=== PATIENT | female | born 2000 | race Hispanic/Latino ===

== ENCOUNTER 2020-04-01 16:51 | Emergency (ER) | payer MEDICAID ==
[~2020-04-01] VITALS: Ht 157.5 cm; Wt 79.4 kg
--- NOTE | 2020-04-01 17:42 | Emergency Department Note ---
History of Present Illnes History of Present Illness Chief Complaint: Chest Pain History of Present Illness This is a 19 year old female Chief Complaint Comment pt came in via POV for c/o chest pain, pt states that she has gastric acid reflux but does not take any prescription medications for it, pt states that she feels anxious whenever she feels the acid come back up, denies any cardiac hx. 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 Any updates have been documented here. Past Medical History Recent Fever: No Clinical Suspicion of Infectio: No New/Unexplained Change in Ment: No Past Medical History: None Past Surgical History: None Other Last Tetanus: UNK Review of Systems Review of Systems Constitutional: Reports no symptoms EENTM: Reports no symptoms Cardiovascular: Reports as per HPI, Reports chest pain Respiratory: Reports no symptoms Gastrointestinal: Reports no symptoms Genitourinary: Reports no symptoms Musculoskeletal: Reports no symptoms Integumentary: Reports no symptoms Neurological: Reports no symptoms Psychological: Reports no symptoms Endocrine: Reports no symptoms Hematological/Lymphatic: Reports no symptoms Physical Exam Related Data Allergies: Coded Allergies: No Known Allergies (Unverified , 02/17/17) Triage Vital Signs Vital Signs Date Time Temp Pulse Resp B/P (MAP) Pulse Ox O2 Delivery O2 Flow Rate FiO2 04/01/20 17:13 98.1 96 18 149/107 99 Vital signs reviewed: Yes Physical Exam CONSTITUTIONAL Constitutional: Present well-developed, Present well-nourished HENT HENT: Present normocephalic, Present atraumatic, Present oropharynx clear/moist, Present nose normal HENT L/R: Present left ext ear normal, Present right ext ear normal EYES Eyes: Reports PERRL, Reports conjunctivae normal NECK Neck: Present ROM normal PULMONARY Pulmonary: Present effort normal, Present breath sounds normal CARDIOVASCULAR Cardiovascular: Present regular rhythm, Present heart sounds normal, Present capillary refill normal, Present normal rate GASTROINTESTINAL Abdominal: Present soft, Present nontender, Present bowel sounds normal GENITOURINARY Genitourinary: Present exam deferred SKIN Skin: Present warm, Present dry MUSCULOSKELETAL Musculoskeletal: Present ROM normal NEUROLOGICAL Neurological: Present alert, Present oriented x 3, Present no gross motor or sensory deficits PSYCHOLOGICAL Psychological: Present mood/affect normal, Present judgement normal Assessment & Plan Medical Decision Making MDM 19-year-old female no past medical history presents to emergency department for intermittent sternal/left-sided chest pain. She has no symptoms at this time. She thinks it may be reflux. She does take Tums at home. Denies aggravating or relieving factors otherwise feels at her baseline health. No family history of heart disease. Chest x-ray, EKG, urine are all unremarkable. Discussed results the patient and will discharge home instructions follow up with her primary care provider or return to emergency department for worsening symptoms. Patient is appropriate discharge. Assessment & Plan Final Impression: (1) Chest pain Depart Disposition: HOME, SELF-CARE Last Vital Signs Date Time Temp Pulse Resp B/P (MAP) Pulse Ox O2 Delivery O2 Flow Rate FiO2 04/01/20 17:13 98.1 96 18 149/107 99 Home Meds No Active Prescriptions or Reported Meds JUNIE DO MD Apr 01, 2020 17:42
--- OUTSIDE RECORDS SUMMARY | 2020-04-01 18:02 | XMS REPORT | Continuity of Care Document ---
Author Author Allegra Migue [employer] MILTON Garner [employer] Address Unknown Phone Unavailable Care Team Providers Care Pressfitter Name Role Phone [employer] Unavailable Un available Problems Problem Status Onset Date Classification Date Reported Comments Source Chest pain, unspecified 11/18/2019 11/20/2019 [facility] CHEST PAIN Active 11/17/2019 [facility] Otitis media, unspecified, left ear 10/29/2018 10/31/2018 [facility] Unspecified acute noninfective otitis externa, left ea r 10/29/2018 10/31/2018 [facility] EAR PAIN Active 10/29/2018 [facility] Nausea with vomiting, unspecified 08/25/2017 11/23/2017 [facility] Vomiting, unspecified 08/17/2017 11/23/2017 [facility] Unspecified abdominal pain 08/17/2017 11/23/2017 [facility] Urinary tract infection, site not specified 08/17/2017 11/23/2017 [facility] VOMITING Active 08/16/2017 [facility] Discharge Diagnosis: Headache 07/03/2015 07/06/2015 [facility] HEADACHE Active 07/03/2015 [facility] Discharge Diagnosis: Epigastric pain 06/30/2015 07/03/2015 [facility] ABD PAIN Active 06/30/2015 [facility] COUGH, HEADACHE, SORE THROAT A ctive 03/10/[address] [facility] COUGH Active 01/19/[address] [facility] Epigastric pain 11/23/2017 [facility] Diarrhea, unspecified 11/23/2017 [facility] Anxiety (finding) Resolved Problem 11/20/2019 [facility] Medications Medication Details Route Status Patient Instructions Ordering Provider Order Date Source Saline Flush 0.9% Notes: (Same as: BD Posiflush) No Longer Active 11/18/2019 [facility] ibuprofen 600 mg oral tablet 6 00 mg = 1 tab, PO, Q6H, PRN Pain, take with food, X 7 day, # 24 tab, 0 Refill(s) Active 10/29/2018 [facility] tramadol hydrochloride 50 MG Oral Tablet 50 mg = 1 tab, PO, Q6H, PRN Pain, X 5 day, # 24 tab, 0 Refill(s) Active 10/29/2018 [facility] amoxicillin 875 mg oral tablet 875 mg = 1 tab, PO, Q12H, X 10 day, # 20 tab, 0 Refill(s) Active 10/29/2018 [facility] Hydrocortisone 10 MG/ML / Neomycin 3.5 M G/ML / Polymyxin B 85506 UNT/ML Otic Solution 2 drp, Each Affected Ear, QID, X 10 day, # 10 ml, 0 Refill(s) Active 10/29/2018 [facility] Zofran ODT 4 mg, Route: PO, Dr ug form: TABDIS, ONCE, Dosing Weight 68.182, kg, Priority: STAT, Start date: 10/29/18 4:19:00 CDT, Stop date: 10/29/18 4:19:00 CDT Inactive 10/29/2018 [facility] Acetaminophen 325 MG / Hydrocodone Chetna trate 5 MG Oral Tablet [Haynes 5/325] 1 tab, Route: PO, Drug Form: TAB, Dosing Weight 68.182, kg, ONCE, STAT, Start date: 10/29/18 4:19:00 CDT, Stop date: 10/29/18 4:19:00 CDT Inactive 10/29/2018 [facility] Nitrofurantoin 100 MG Oral Capsule [Macrobid] 100 mg = 1 cap, PO, BID, X 5 day, # 10 cap, 0 Refill(s) No Longer Active 08/17/2017 [facility] Ranitidine 150 MG Oral Tablet [Zantac] 150 mg = 1 tab, PO, BID, # 60 tab, 0 Refill(s) Active 08/17/2017 [facility] Phenergan 25 mg oral tablet 25 mg = 1 tab, PO, Q6H, PRN Nausea, # 15 tab, 0 Refill(s) Active 08/17/2017 [facility] Dicyclomine Hydrochloride 20 MG Oral Tablet [Bentyl] 20 mg = 1 tab, PO, QID-Before Meals, # 20 tab, 0 Refill(s) Active 08/17/2017 [facility] Famotidine 20 mg, Route: PO, O NCE, Dosing Weight 68.182, kg, Priority: STAT, Start date: 08/17/17 5:05:00 CDT, Stop date: 08/17/17 5:05:00 CDT Inactive 08/17/2017 [facility] Promethazine 12.5 mg, Route: I VPB, ONCE, Dosing Weight 68.182, kg, Priority: STAT, Start date: 08/17/17 5:05:00 CDT, Stop date: 08/17/17 5:05:00 CDT Inactive 08/17/2017 [facility] Rocephin 1 gm, Route: IVPB, Dr ug form: PDR/INJ, ONCE, Dosing Weight 68.182, kg, Priority: STAT, Start date: 08/17/17 4:47:00 CDT, Stop date: 08/17/17 4:47:00 CDT, ABX Indication: Urinary Tract Infection Inactive 08/17/2017 [facility] Ondansetron 4 mg, Route: IVP, ONCE, Dosing Weight 68.182, kg, Priority: STAT, Start date: 08/17/17 3:36:00 CDT, Stop date: 08/17/17 3:36:00 CDT Inactive 08/17/2017 [facility] Saline Flush 0.9% Notes: (Same as: BD Posiflush) Inactive 08/17/2017 [facility] Sodium Chloride 0.9% (Bolus) IV 1,000 mL, Infuse Over: 1 hr, Route: IV, ONCE, Priority: STAT, Dosing Weight 68.182 kg, Start date: 08/17/17 3:36:00 CDT, Stop date: 08/17/17 3:36:00 CDT Inactive 08/17/2017 [facility] ibuprofen 800 mg oral tablet 8 00 mg = 1 tab, PO, Q8H, PRN Fever or Pain, Take with food, # 30 tab, 0 Refill(s) Active 07/03/2015 [facility] Ondansetron 4 MG Disintegrating Tablet [Zofran] 4 mg = 1 tab, PO, Q8H, PRN as needed for nausea/vomiting, X 4 day, # 12 tab, 0 Refill(s) Active 07/03/2015 [facility] acetaminophen-codeine #3 1 tab , Route: PO, Dosing Weight 59.091, kg, ONCE, STAT, Start date: 07/03/15 4:12:00, Stop date: 07/03/15 4:12:00 Inactive 07/03/2015 [facility] Dicyclomine Hydrochloride 10 MG Oral Capsule [Bentyl] 10 mg = 1 cap, PO, QID-Before Meals, # 28 cap, 0 Refill(s) Active 06/30/2015 [facility] Ondansetron 4 MG Disintegrating Tablet [Zofran] 4 mg = 1 tab, PO, Q8H, PRN Nausea and Vomiting, Dissolve tab under tongue, X 5 day, # 15 tab, 0 Refill(s) Active 06/30/2015 [facility] Levsin Notes: (Same as: Levsin ) MEDICATION WASTE Product Size: 0.5 mg Product Wasted: ___ mg Inactive 06/30/2015 [facility] Zofran Notes: (Same as: Zofran ) MEDICATION WASTE Product Size: 4 mg Product Wasted: ___ mg Inactive 06/30/2015 [facility] Sodium Chloride 0.154 MEQ/ML Injectable Solution 1,000 mL, 1000 ml/hr, Infuse Over: 1 hr, Route: IV, 1,000, Drug form: INJ, ONCE, Priority: STAT, Dosing Weight 68.182 kg, Start date: 06/30/15 3:02:00, Duration: 1 doses or times, Stop date: 06/30/15 3:02:00 Inactive 06/30/2015 [facility] acetaminophen 500 mg, 1 tab, R oute: PO, Drug form: TAB, ONCE, Dosing Weight 52.727, kg, Pediatric Dosing, Priority: STAT, Start date: 03/10/13 21:44:00, Stop date: 03/10/13 21:44:00Max acetaminophen 4000 mg/day (4 gm/day). (Same as: Tylenol Extra Strength) Inactive Gu erra 03/11/[address] [facility] Ventolin HFA 90 mcg/inh inhalation aerosol with adapte r 2 puff, INHALATION, QID, PRN, 17 gm, as needed for cough or wheezing, Substitution Allowed, Maintenance, AERO INHALATION Active Dav 01/20/[address] [facility] Zithromax Z-Ishmael 250 mg oral tablet 1, PO, Daily, Take as directed, 1 pkt, Substitution AllowedTake as directed PO Active Dav 01/20/[address] [facility] Allergies, Adverse Reactions, Alerts Substance Category Reaction Severity Reaction type Status Date Reported Comments Source No Known Medication Allergies Assertion Drug aller gy [facility] Immunizations No Data Provided for This Section Results Order Name Results Value Reference Range Date Interpretation Comments Source CARDIAC ENZYMES Total CK 554 12 - 191 11/18/2019 [facility] CARDIAC ENZYMES Troponin-I <0.02 0.00 - 0.40 11/18/2019 [facility] CHEM PANEL Glucose Lvl 103 70 - 99 11/18/2019 [facility] CHEM PANEL BUN 14 7 - 22 11/18/2019 [facility] CHEM PANEL Creatinine Lvl 0.64 0.50 - 1.40 11/18/2019 [facility] CHEM PANEL Sodium Lvl 139 135 - 145 11/18/2019 [facility] CHEM PANEL Potassium Lvl 3.6 3.5 - 5.1 11/18/2019 [facility] CHEM PANEL Chloride Lvl 107 95 - 109 11/18/2019 [facility] CHEM PANEL CO2 28 24 - 32 11/18/2019 [facility] CHEM [facility] Calcium Lvl 9.1 8.5 - 10.5 11/18/2019 [facility] CHEM PANEL Total Protein 8.2 6.4 - 8.4 11/18/2019 [facility] CHEM PANEL Albumin Lvl 3.9 3.5 - 5.0 11/18/2019 [facility] CHEM PANEL ALT 47 0 - 65 11/18/2019 [facility] CHEM PANEL AST 30 0 - 37 11/18/2019 [facility] CHEM PANEL Alk Phos 95 39 - 136 11/18/2019 [facility] CHEM PANEL Bili Total 0.3 0.2 - 1.3 11/18/2019 [facility] CHEM PANEL AGAP 7.6 10.0 - 20.0 11/18/2019 [facility] CHEM PANEL B/C Ratio 22 6 - 25 11/18/2019 [facility] CHEM PANEL Globulin 4.3 2.7 - 4.2 11/18/2019 [facility] CHEM PANEL A/G Ratio 0.9 0.7 - 1.6 11/18/2019 [facility] CHEM PANEL eGFR 129 11/18/2019 Result Comment: The eGFR is calculated using the CKD-EPI formula. In most young, healthy individuals the eGFR will be >90 mL/min/1.73m2. The eGFR declines with age. An eGFR of 60-89 may be normal in some populations, particularly the elderly, for whom the CKD-EPI formula has not been extensively validated. Use of the eGFR is not recommended in the following populations:

Individuals with unstable creatinine concentrations, including patients and those with serious co-morbid conditions.

Patients with extremes in muscle mass or diet.

The data above are obtained from the National Kidney Disease Education Program (NKDEP) which additionally recommends that when the eGFR is used in patients with extremes of body mass index for purposes of drug dosing, the eGFR should be multiplied by the estimated BMI. [facility] ENDOCRINOLOGY S Preg Ne gative *NA* (11/18/19 12:38 AM) Negative 11/18/2019 [facility] WBC 9.2 3.7 - 10.4 11/18/2019 [facility] RBC 4.60 4.20 - 5.40 11/18/2019 [facility] Hgb 13.2 12.0 - 16.0 11/18/2019 [facility] Hct 38.3 36.0 - 48.0 11/18/2019 [facility] MCV 83.4 80.0 - 98.0 11/18/2019 [facility] MCH 28.7 27.0 - 31.0 11/18/2019 [facility] MCHC 34.3 32.0 - 36.0 11/18/2019 [facility] RDW 13.6 11.5 - 14.5 11/18/2019 [facility] Platelet 301 133 - 450 11/18/2019 [facility] MPV 9.0 7.4 - 10.4 11/18/2019 [facility] Segs 70.8 45.0 - 75.0 11/18/2019 [facility] Lymphocytes 19.5 20.0 - 40.0 11/18/2019 [facility] Monocytes 9.0 2.0 - 12.0 11/18/2019 [facility] Eosinophils 0.4 0.0 - 4.0 11/18/2019 [facility] Basophils 0.3 0.0 - 1.0 11/18/2019 [facility] Neutrophils # 6.5 1.5 - 8.1 11/18/2019 [facility] Lymphocytes # 1.8 1.0 - 5.5 11/18/2019 [facility] Monocytes # 0.8 0.0 - 0.8 11/18/2019 [facility] URINE AND STOOL UA Urobilinogen <=1.0 mg/dL 0.1 - 1.0 08/17/2017 [facility] URINE AND STOOL UA Leuk Est Small *ABN* (08/17/17 3:55 AM) Negative 08/17/2017 [facility] URINE AND STOOL UA Mucus Few /LPF None Seen /LPF 08/17/2017 [facility] URINE AND STOOL UA Bacteria Occasional /HPF None Seen /HPF 08/17/[address] [facility] [address] URINE AND STOOL UA [place] Yeast Occasional /HPF None Seen /HPF 08/17/[address] [facility] [address] URINE AND STOOL UA Nitrite Negative (08/17/17 3:55 AM) Negative 08/17/2017 [facility] URINE AND STOOL UA RBC 3 0 - 2 08/17/2017 [facility] URINE AND STOOL UA WBC 26 0 - 5 08/17/2017 [facility] URINE AND STOOL UA Sq Epi Many /LPF Few /LPF 08/17/2017 [facility] URINE AND STOOL UA pH 7.0 5.0 - 8.0 08/17/2017 [facility] URINE AND STOOL UA Turbidity Slight *ABN* (08/17/17 3:55 AM) Clear 08/17/2017 [facility] URINE AND STOOL UA Color Yellow *NA* (08/17/17 3:55 AM) Yellow 08/17/2017 [facility] URINE AND STOOL UA Spec Grav 1.032 <=1.030 08/17/2017 [facility] URINE AND STOOL UA Glucose Negative mg/dL Negative mg/dL 08/17/2017 [facility] URINE AND STOOL UA Ketones Negative mg/dL Negative mg/dL 08/17/2017 [facility] URINE AND STOOL UA Blood Negative (08/17/17 3:55 AM) Negative 08/17/2017 [facility] URINE AND STOOL UA Bili Negative *NA* (08/17/17 3:55 AM) Negative 08/17/2017 [facility] URINE AND STOOL UA Protein 30 mg/dL Negative mg/dL 08/17/2017 [facility] URINE CHEM U Preg Negat shanae (08/17/17 3:55 AM) Negative 08/17/2017 [facility] Culture: Urine >100,000 CFU/mL Skin Devi <10,000 CFU/mL Gram Negative Rods, Lactose Fermenters 08/17/2017 [facility] CHEM PANEL Lipase Lvl 71 06 - 393 08/17/2017 [facility] ELECTROLYTES AGAP 11.9 10.0 - 20.0 08/17/2017 [facility] ELECTROLYTES A/G Ratio 0.9 0.7 - 1.6 08/17/2017 [facility] ELECTROLYTES B/C Ratio 31 6 - 25 08/17/2017 [facility] ELECTROLYTES Globulin 4.1 2.7 - 4.2 08/17/2017 [facility] ELECTROLYTES eGFR 124 08/17/2017 Result Comment: The eGFR is calculated using the modified Vigil equation 0.413 x Height (cm) /Serum Creatinine (mg/dL). [facility] ELECTROLYTES AST 18 0 - 37 08/17/2017 [facility] ELECTROLYTES Alk Phos 72 39 - 136 08/17/2017 [facility] ELECTROLYTES ALT 22 0 - 65 08/17/2017 [facility] ELECTROLYTES Bili Total 0.4 0.2 - 1.3 08/17/2017 [facility] ELECTROLYTES Albumin Lvl 3.8 3.5 - 5.0 08/17/2017 [facility] ELECTROLYTES CO2 24 24 - 32 08/17/2017 [facility] ELECTROLYTES Calcium Lvl 8.7 8.5 - 10.5 08/17/2017 [facility] ELECTROLYTES Chloride Lvl 108 95 - 109 08/17/2017 [facility] ELECTROLYTES Total Protein 7.9 6.4 - 8.4 08/17/2017 [facility] ELECTROLYTES Potassium Lvl 3.9 3.5 - 5.1 08/17/2017 [facility] ELECTROLYTES BUN 16 7 - 22 08/17/2017 [facility] ELECTROLYTES Creatinine Lvl 0.5 2 0.50 - 1.40 08/17/2017 [facility] ELECTROLYTES Glucose Lvl 92 70 - 99 08/17/2017 [facility] ELECTROLYTES Sodium Lvl 140 135 - 145 08/17/2017 [facility] HEMATOLOGY RBC Morph Neli l (08/17/17 3:46 AM) 08/17/2017 [facility] Plt Morph Neli l (08/17/17 3:46 AM) 08/17/2017 [facility] HEMATOLOGY Segs 91.4 45.0 - 75.0 08/17/2017 [facility] HEMATOLOGY Lymphocytes # 0.4 1.0 - 5.5 08/17/2017 [facility] HEMATOLOGY Monocytes # 0.5 0.0 - 0.8 08/17/2017 [facility] HEMATOLOGY Segs-Bands # 10.4 1.5 - 8.1 08/17/2017 [facility] HEMATOLOGY Toxic Gran Slight 08/17/2017 [facility] Lymphocytes 3.8 20.0 - 40.0 08/17/2017 [facility] HEMATOLOGY Eosinophils 0.2 0.0 - 4.0 08/17/2017 [facility] HEMATOLOGY Basophils 0.2 0.0 - 1.0 08/17/2017 [facility] HEMATOLOGY Monocytes 4.4 2.0 - 12.0 08/17/2017 [facility] HEMATOLOGY Platelet 265 133 - 450 08/17/2017 [facility] HEMATOLOGY MCHC 32.8 32.0 - 36.0 08/17/2017 [facility] MCH 26.2 27.0 - 31.0 08/17/2017 [facility] MPV 9.0 7.4 - 10.4 08/17/2017 [facility] HEMATOLOGY RDW 14.1 11.5 - 14.5 08/17/2017 [facility] HEMATOLOGY Hgb 11.9 12.0 - 16.0 08/17/2017 [facility] HEMATOLOGY MCV 79.8 80.0 - 98.0 08/17/2017 [facility] HEMATOLOGY Hct 36.2 36.0 - 48.0 08/17/2017 [facility] HEMATOLOGY WBC 11.3 3.7 - 10.4 08/17/2017 [facility] RBC 4.53 4.20 - 5.40 08/17/2017 [facility] URINE CHEM U Preg Negat shanae (07/03/15 5:19 AM) Negative 07/03/2015 [facility] URINE AND STOOL UA Turbidity Clear (06/30/15 1:29 AM) Clear 06/30/2015 [facility] URINE AND STOOL UA Spec Grav 1.031 <=1.030 06/30/2015 [facility] URINE AND STOOL UA WBC 2 0 - 5 06/30/2015 [facility] URINE AND STOOL UA Leuk Est Trace *ABN* (06/30/15 1:29 AM) Negative 06/30/2015 [facility] URINE AND STOOL UA Nitrite Negative (06/30/15 1:29 AM) Negative 06/30/2015 [facility] URINE AND STOOL UA Sq Epi Occasional /LPF Few /LPF 06/30/2015 [facility] URINE AND STOOL UA Blood Negative (06/30/15 1:29 AM) Negative 06/30/2015 [facility] URINE AND STOOL UA RBC 4 0 - 2 06/30/2015 [facility] URINE AND STOOL UA Color Ltyellow 06/30/2015 [facility] URINE AND STOOL UA Mucus Few /LPF None Seen /LPF 06/30/2015 [facility] URINE AND STOOL UA Bacteria Occasional /HPF None Seen /HPF 06/30/2015 [facility] URINE AND STOOL UA Urobilinogen <=1.0 mg/dL 0.1 - 1.0 06/30/2015 [facility] URINE AND STOOL UA Bili Negative *NA* (06/30/15 1:29 AM) Negative 06/30/2015 [facility] URINE AND STOOL UA Protein Negative mg/dL Negative mg/dL 06/30/2015 [facility] URINE AND STOOL UA pH 5.0 5.0 - 8.0 06/30/2015 [facility] URINE AND STOOL UA Ketones Trace mg/dL Negative mg/dL 06/30/2015 [facility] URINE AND STOOL UA Glucose Negative mg/dL Negative mg/dL 06/30/2015 [facility] URINE CHEM U Preg Negat shanae (06/30/15 1:29 AM) Negative 06/30/2015 [facility] CHEM PANEL Lipase Lvl 103 73 - 393 06/30/2015 [facility] CHEM PANEL Amylase Lvl 89 25 - 115 06/30/2015 [facility] CHEM PANEL Glucose Lvl 92 70 - 99 06/30/2015 [facility] CHEM PANEL ALT 33 0 - 65 06/30/2015 [facility] CHEM PANEL Total Protein 7.9 6.4 - 8.4 06/30/2015 [facility] CHEM PANEL CO2 22 24 - 32 06/30/2015 [facility] CHEM PANEL Albumin Lvl 4.0 3.5 - 5.0 06/30/2015 [facility] CHEM PANEL Calcium Lvl 8.8 8.5 - 10.5 06/30/2015 [facility] CHEM PANEL Potassium Lvl 3.8 3.5 - 5.1 06/30/2015 [facility] CHEM PANEL Creatinine Lvl 0.48 0.50 - 1.40 06/30/2015 [facility] CHEM PANEL Chloride Lvl 107 95 - 109 06/30/2015 [facility] CHEM PANEL Sodium Lvl 139 135 - 145 06/30/2015 [facility] CHEM PANEL BUN 15 7 - 22 06/30/2015 [facility] CHEM PANEL eGFR 136 06/30/2015 Result Comment: The eGFR is calculated using the modified Vigil equation 0.413 x Height (cm) /Serum Creatinine (mg/dL). [facility] CHEM PANEL Alk Phos 106 80 - 406 06/30/2015 [facility] CHEM PANEL Bili Total 0.3 0.2 - 1.3 06/30/2015 [facility] CHEM PANEL AST 14 0 - 37 06/30/2015 [facility] CHEM PANEL Globulin 3.9 2.0 - 4.0 06/30/2015 [facility] CHEM PANEL A/G Ratio 1.0 0.7 - 1.6 06/30/2015 [facility] CHEM PANEL B/C Ratio 31 6 - 25 06/30/2015 [facility] CHEM PANEL AGAP 13.8 10.0 - 20.0 06/30/2015 [facility] Eosinophils # 0.2 0.0 - 0.5 06/30/2015 [facility] HEMATOLOGY Monocytes # 0.8 0.0 - 0.8 06/30/2015 [facility] Lymphocytes # 1.4 1.0 - 5.5 06/30/2015 [facility] HEMATOLOGY Segs-Bands # 7.5 1.5 - 8.1 06/30/2015 [facility] Eosinophils 1.9 0.0 - 4.0 06/30/2015 [facility] Segs 75.4 34.0 - 64.0 06/30/2015 [facility] Lymphocytes 13.9 20.0 - 40.0 06/30/2015 [facility] Basophils 0.3 0.0 - 1.0 06/30/2015 [facility] Monocytes 8.5 2.0 - 12.0 06/30/2015 [facility] MPV 9.0 7.4 - 10.4 06/30/2015 [facility] Platelet 266 133 - 450 06/30/2015 [facility] MCHC 33.6 32.0 - 36.0 06/30/2015 [facility] MCV 82.8 80.0 - 98.0 06/30/2015 [facility] RDW 13.6 11.5 - 14.5 06/30/2015 [facility] MCH 27.8 27.0 - 31.0 06/30/2015 [facility] RBC 4.97 4.20 - 5.40 06/30/2015 [facility] WBC 9.9 3.7 - 10.4 06/30/2015 [facility] Hct 41.1 36.0 - 48.0 06/30/2015 [facility] Hgb 13.8 12.0 - 16.0 06/30/2015 [facility] VIRAL - SEROLOGY Influ A Negative (03/10/2013 21:30:00) Negati ve 03/11/[address] [facility] VIRAL - SEROLOGY Influ B Negative 1 (03/10/2013 21:30:00) Negati ve 03/11/2013 Normal <sup>1</sup>Interpretive Data: Influenza A&B Antigen:
Due to the low sensitivity of this test a negative result does not exclude influenza virus infection. A diagnosis of influenza should be considered based on a patient's clinical presentation and empiric antiviral treatment should be considered, if indicated. If more conclusive testing is desired, follow-up confirmatory testing with either viral culture or PCR is warranted. [facility] Pathology Reports No Data Provided for This Section Diagnostic Reports Report Value Date Source Chest 1view DX PROCEDURE INFOR MATION: Exam: XR Chest, 1 View Exam date and time: 11/18/2019 12:07 AM Age: 19 years old Clinical indication: Chest pain; Additional info: /chest pain TECHNIQUE: Imaging protocol: XR of the chest Views: 1 view. Other technique: Single AP view of the thorax is submitted for review. COMPARISON: CHEST 1VIEW DX 03/10/2013 10:09 PM FINDINGS: Lungs: The thorax shows normal lung volumes without consolidation or interstitial opacities. Pleural space: No effusions or pneumothorax. Heart/Mediastinum: The heart size is normal. The pulmonary vasculature is normal. The mediastinal contour is normal. The trachea is midline. Bones/joints: No acute abnormality seen. IMPRESSION: No acute cardiopulmonary findings. Zheng Souza MD On 11/18/2019 00:33:38; [id number] 11/17/2019 [facility] Abdomen RUQ US EXAM: RIGHT UPPER QUADRANT ULTRASOUND HISTORY: Right-sided abdominal pain. COMPARISON: None. TECHNIQUE: Sonographic evaluation of the right upper quadrant was performed with supplemental color and pulsed Doppler. FINDINGS: LIVER: Unremarkable. GALLBLADDER: No gallstones or wall thickening. BILE DUCTS: The visualized common duct measures 2 mm diameter. PANCREAS: Not visualized due to overlying bowel gas. RIGHT KIDNEY: No hydronephrosis. IMPRESSION: Pancreas not visualized. Otherwise, unremarkable ultrasound right upper quadrant. SL: 17 06/30/2015 [facility] 1view PROCEDURE: Chest 1view REASON FOR EXAM: See Clinic Indication CLINICAL INDICATION: Cough and fever COMPARISON: 01/20/2013. FINDINGS: No acute process. No focal consolidation, pleural effusion, or pneumothorax. Stable cardiothymic silhouette. SL: 12 03/10/[address] [facility] Chest 2 views CHEST RADIOGRAPH 2 VIEWS INDICATION: Chest pain COMPARISON: None FINDINGS: There is no consolidation, pleural effusion, or pneumothorax. No suspicious pulmonary nodules are identified. The cardiomediastinal silhouette and pulmonary vasculature are within normal limits. No acute bony abnormalities are seen. IMPRESSION: No acute intrathoracic disease is visualized. SL: 15 01/20/[address] [facility] Consultation Notes No Data Provided for This Section Discharge Summaries No Data Provided for This Section History and Physicals No Data Provided for This Section Vital Signs Vital Sign Value Date Comments Source Temperature Oral (F) 98.3 F 11/18/2019 [facility] Heart Rate 71 11/18/2019 [facility] Respitory Rate 17 11/18/2019 [facility] Systolic (mm Hg) 144 11/18/2019 [facility] Diastolic (mm Hg) 96 11/18/2019 [facility] Height 154.94 cm 11/18/2019 [facility] BMI Calculated 33.13 11/18/2019 [facility] Weight 79.545 11/18/2019 [facility] Systolic (mm Hg) 146 11/18/2019 [facility] Diastolic (mm Hg) 96 11/18/2019 [facility] Heart Rate 88 11/18/2019 [facility] Respitory Rate 20 11/18/2019 [facility] Temperature Oral (F) 99.0 F 11/18/2019 [facility] Heart Rate 77 10/29/2018 [facility] Temperature Oral (F) 98.3 F 10/29/2018 [facility] Respitory Rate 18 10/29/2018 [facility] Systolic (mm Hg) 129 10/29/2018 [facility] Diastolic (mm Hg) 88 10/29/2018 [facility] Weight 68.182 10/29/2018 [facility] Height 154.94 cm 10/29/2018 [facility] Respitory Rate 20 10/29/2018 [facility] Heart Rate 89 10/29/2018 [facility] BMI Calculated 28.4 10/29/2018 [facility] Temperature Oral (F) 98 F 10/29/2018 [facility] Systolic (mm Hg) 134 10/29/2018 [facility] Diastolic (mm Hg) 81 10/29/2018 [facility] Systolic (mm Hg) 115 08/17/2017 [facility] Diastolic (mm Hg) 71 08/17/2017 [facility] Respitory Rate 20 08/17/2017 [facility] Heart Rate 97 08/17/2017 [facility] Temperature Oral (F) 98.8 F 08/17/2017 [facility] Respitory Rate 20 08/17/2017 [facility] Heart Rate 98 08/17/2017 [facility] Weight 68.182 08/17/2017 [facility] BMI Calculated 28.4 08/17/2017 [facility] Height 154.94 cm 08/17/2017 [facility] Systolic (mm Hg) 114 08/17/2017 [facility] Diastolic (mm Hg) 72 08/17/2017 [facility] Systolic (mm Hg) 118 07/03/2015 [facility] Diastolic (mm Hg) 71 07/03/2015 [facility] Respitory Rate 18 07/03/2015 [facility] Temperature Oral (F) 98.3 F 07/03/2015 [facility] Heart Rate 75 07/03/2015 [facility] Systolic (mm Hg) 129 07/03/2015 [facility] Diastolic (mm Hg) 82 07/03/2015 [facility] Heart Rate 87 07/03/2015 [facility] Respitory Rate 18 07/03/2015 [facility] Temperature Oral (F) 98.5 F 07/03/2015 [facility] Height 157.48 cm 07/03/2015 [facility] BMI Calculated 23.83 07/03/2015 [facility] Weight 59.091 07/03/2015 [facility] Systolic (mm Hg) 119 07/03/2015 [facility] Diastolic (mm Hg) 69 07/03/2015 [facility] Temperature Oral (F) 99.2 F 07/03/2015 [facility] Heart Rate 87 07/03/2015 [facility] Respitory Rate 18 07/03/2015 [facility] Temperature Oral (F) 98.0 F 06/30/2015 [facility] Systolic (mm Hg) 114 06/30/2015 [facility] Diastolic (mm Hg) 76 06/30/2015 [facility] Respitory Rate 16 06/30/2015 [facility] Heart Rate 75 06/30/2015 [facility] Temperature Oral (F) 98 F 06/30/2015 [facility] Systolic (mm Hg) 128 06/30/2015 [facility] Diastolic (mm Hg) 86 06/30/2015 [facility] Respitory Rate 18 06/30/2015 [facility] Heart Rate 78 06/30/2015 [facility] Height 157.48 cm 06/30/2015 [facility] Weight 68.182 06/30/2015 [facility] BMI Calculated 27.49 06/30/2015 [facility] Systolic (mm Hg) 138 06/30/2015 [facility] Diastolic (mm Hg) 92 06/30/2015 [facility] Temperature Oral (F) 98.1 F 06/30/2015 [facility] Respitory Rate 20 06/30/2015 [facility] Heart Rate 83 06/30/2015 [facility] Diastolic (mm Hg) 71 03/11/2013 [facility] Heart Rate 88 03/11/2013 [facility] Temperature Oral (F) 98.4 F 03/11/2013 [facility] Respitory Rate 18 03/11/2013 [facility] Systolic (mm Hg) 116 03/11/2013 [facility] Weight 52.727 03/11/2013 [facility] Respitory Rate 20 03/11/2013 [facility] Temperature Oral (F) 99.5 F 03/11/2013 [facility] Heart Rate 115 03/11/2013 [facility] Systolic (mm Hg) 119 03/11/2013 [facility] Diastolic (mm Hg) 78 03/11/2013 [facility] Heart Rate 80 01/20/2013 [facility] Temperature Oral (F) 98.6 F 01/20/2013 [facility] Systolic (mm Hg) 111 01/20/2013 [facility] Respitory Rate 20 01/20/2013 [facility] Diastolic (mm Hg) 80 01/20/2013 [facility] Respitory Rate 20 01/20/2013 [facility] Temperature Oral (F) 98.2 F 01/20/2013 [facility] Weight 51.818 01/20/2013 [facility] Heart Rate 78 01/20/2013 [facility] Diastolic (mm Hg) 74 01/20/2013 [facility] Systolic (mm Hg) 110 01/20/2013 [facility] Height 154.94 cm 01/20/2013 [facility] Encounters Location Location Details Encounter Type Encounter Number Reason For Visit Attending Provider ADM Date DC Date Status Source [facility] Emergency [id number] JADEN DIONY 01/19/2013 01/20/2013 [facility]charged [id number] [facility] 03[facility]10[facility]2013 [facility] [id number] 02 Desmond Kramer 06/30/2015 06/30/2015 [facility] [id number] 03 Marleni Barbosa 07/03/2015 07/03/2015 [facility] Emergency [id number] Alessandra Cardenas 08/17/2017 08/17/2017 [facility] Emergency [id number] Sixto Alejandro 10/29/2018 10/29/2018 [facility] Emergency [id number] Sixto Alejandro 11/18/2019 11/18/2019 [facility] Procedures Procedure Code Date Perfomer Comments Source Emergency department visit for the evalu ation and management of a patient, which requires these 3 tipton components: An expanded problem focused history; An expanded problem focused examination; and Medical decision making of moderate complexity. Counseling [id number] 03/10/[address] [facility] Assessment and Plan No Data Provided for This Section Plan of Care No Data Provided for This Section Social History Social History Date Source Social History TypeResponse Smoking Status Never smoker; Type: Cigarettes; Exposure to Tobacco Smoke None; Cigarette Smoking Last 365 Days No; Reg Smoking Cessation Counseling No entered on: 10/29/18 10/29/2018 [facility] Family History No Data Provided for This Section Advance Directives No Data Provided for This Section Functional Status No Data Provided for This Section
--- OUTSIDE RECORDS SUMMARY | 2020-04-01 18:02 | XMS REPORT | Continuity of Care Document ---
Author Author [facility] t Organization [facility] Address [address] [place] [address] Phone Unavailable Care Team Providers Care Check Processor Name Role Phone AlejandroBeronica juanp Attphys RonaldErniejia Milleria Attphys Carla COSTELLO Attphys Unavailable David Barbosa Attphys Arthur Kramer Attphys Payers Payer Name Policy Type Policy Number Effective Date Expiration Date S ource Problems Condition Name Condition Details Condition Category Status Onset Date Resolution Date Last Treatment Date Treating Clinician Comments Source CHEST PAIN CHES T PAIN Active 11/17/2019 [facility] Active 2019-11-17 00:00:00 2019-11-26 14:05:00 Allegra Camarena EAR PAIN EAR PAIN Active 10/29/2018 [facility] Diagnosis Active 2018-10-29 00:00:00 2018-10-29 04:46:00 Allegra Camarena VOMITING VOMI TING Active 08/16/2017 [facility] Active 2017-08-16 00:00:00 2017-08-17 07:19:00 [facility] HEADACHE HEAD ACHE Active 07/03/2015 [facility] Active 2015-07-03 00:00:00 2015-07-16 14:16:00 [facility] ABD PAIN ABD PAIN Active 06/30/2015 [facility] Diagnosis Active 2015-06-30 00:00:00 2015-07-09 13:07:00 [facility] COUGH, HEADACHE, SORE THROAT C OUGH, HEADACHE, SORE THROAT Active 03/10/2013 [facility] Diagnosis Active 03-10 00:00:00 2013-03-10 22:16:00 [facility] COUGH COUG H Active 01/19/2013 [facility] Diagnosis Active 2013-01-19 00:00:00 2013-01-20 00:47:00 [facility] Epigastric pain Epig astric pain 11/23/2017 [facility] Problem 2017-11-23 15:35:29 [facility] Diarrhea, unspecified Diar cierra, unspecified 11/23/2017 [facility] Problem 2017-11-23 15:35:29 M emojuan luis Camarena Anxiety (finding) Anxi ety (finding) Resolved Problem 11/20/2019 [facility] Problem Resolved 2019-11-20 21:06:37 [facility] Chest pain, unspecified Ches t pain, unspecified 11/18/2019 11/20/2019 [facility] 2019-11-18 17:00:00 2019 21:06:37 2019-11-20 21:06:37 [facility] Otitis media, unspecified, left ear Otitis media, unspecified, left ear 10/29/2018 10/31/2018 [facility] 2018-10-29 17:00:00 2018-10-31 21:07:42 2018-10-31 21:07:42 [facility] Unspecified acute noninfective otitis externa, left ea r Unspecified acute noninfective otitis externa, left ear 10/29/2018 10/31/2018 [facility] Problem 2018-10-29 17:00:00 2018-10-31 21:07:42 2018-10 21:07:42 [facility] Nausea with vomiting, unspecified Nausea with vomiting, unspecified 08/25/2017 11/23/2017 [facility] 20 30-08-12 03:33:22 2017-11-23 15:35:29 2017-11-23 15:35:29 [facility] Vomiting, unspecified Vomi ting, unspecified 08/17/2017 11/23/2017 [facility] Problem 2017-08-17 05:00:00 2017 15:35:29 2017-11-23 15:35:29 [facility] Unspecified abdominal pain Uns pecified abdominal pain 08/17/2017 11/23/2017 [facility] 2017-08-17 05:0 0:00 2017-11-23 15:35:29 2017-11-23 15:35:29 [facility]ave Urinary tract infection, site not specified Urinary tract infection, site not specified 08/17/2017 11/23/2017 [facility] 2017-08-17 05:00:00 2017-11-23 15:35:29 2017-11-23 15:35:29 [facility] Discharge Diagnosis: Headache Discharge Diagnosis: Headache 07/03/2015 07/06/2015 [facility] 07-03 06:00:00 2015-07-06 04:22:52 2015-07-06 04:22:52 [facility] Discharge Diagnosis: Epigastric pain Discharge Diagnosis: Epigastric pain 06/30/2015 07/03/2015 [facility] 2015-06-30 06:00:00 2015-07-03 05:03:01 2015-07-03 05:03:01 [facility] Allergies, Adverse Reactions, Alerts Allergy Name Allergy Type Status Severity Reaction(s) Onset Date Inacti ve Date Treating Clinician Comments Source No Known Allergies DA Active U 2019-07-03 00:00:00 [facility] No Known Allergies DA Active U 2017-05-27 00:00:00 [facility] No Known Medication Allergies No Known Medication Allergies Active [facility] Social History Smoking Status Start Date Stop Date Source Social History [facility] Medications Ordered Medication Name Filled Medication Name Start Date Stop Da te Current Medication? Ordering Clinician Indication Dosage Frequency Signature (SIG) Comments Components Source Saline Flush 0.9% 2019-11-18 04:57:00 No Notes: (Same as: BD Posiflush) Allegra Camarena ibuprofen 600 mg oral tablet 2018-10-29 09:46:00 Yes 600 mg = 1 tab, PO, Q6H, PRN Pain, take with food, X 7 day, # 24 tab, 0 Refill(s) Allegra Camarena tramadol hydrochloride 50 MG Oral Tablet 2018-10-29 09:42:00 Yes 50 mg = 1 tab, PO, Q6H, PRN Pain, X 5 day, # 24 tab, 0 Refill(s) Allegra Camarena amoxicillin 875 mg oral tablet 2018-10-29 09:41:00 Yes 875 mg = 1 tab, PO, Q12H, X 10 day, # 20 tab, 0 Refill(s) Allegra Camarena Hydrocortisone 10 MG/ML / Neomycin 3.5 M G/ML / Polymyxin B [id number] UNT/ML Otic Solution 2018-10-29 09:39:00 Yes 2 drp, Each Affected Ear, QID, X 10 day, # 10 ml, 0 Refill(s) Allegra Hadley nn Sandifrelaina ODT 2018-10-29 09:19:00 No 4 mg, Route: PO, Drug form: TABDIS, ONCE, Dosing Weight 68.182, kg, Priority: STAT, Start date: 10/29/18 4:19:00 CDT, Stop date: 10/29/18 4:19:00 CDT Allegra Camarena Acetaminophen 325 MG / Hydrocodone Bitartrate 5 MG Oral Tabl et [Clare 5/325] 2018-10-29 09:19:00 No 1 tab, Route: PO, Drug Form: TAB, Dosing Weight 68.182, kg, ONCE, STAT, Start date: 10/29/18 4:19:00 CDT, Stop date: 10/29/18 4:19:00 CDT Allegra Camarena Nitrofurantoin 100 MG Oral Capsule [Macrobid] 2017-08-17 10:10:0 0 No 100 mg = 1 cap, PO, BID, X 5 day, # 10 cap, 0 Refill(s) Allegra Camarena Ranitidine 150 MG Oral Tablet [Zantac] 2017-08-17 10:10:00 Yes 150 mg = 1 tab, PO, BID, # 60 tab, 0 Refill(s) Allegra Camarena Phenergan 25 mg oral tablet 2017-08-17 10:10:00 Yes 25 mg = 1 tab, PO, Q6H, PRN Nausea, # 15 tab, 0 Refill(s) Allegra Camarena Dicyclomine Hydrochloride 20 MG Oral Tablet [Bentyl] 2 10:09:00 Yes 20 mg = 1 tab, PO, QID-Before Meals, # 2 0 tab, 0 Refill(s) [facility] Famotidine 2017-08-17 10:05:00 No 20 mg, Route: PO, ONCE, Dosing Weight 68.182, kg, Priority: STAT, Start date: 08/17/17 5:05:00 CDT, Stop date: 08/17/17 5:05:00 CDT [facility] Promethazine 2017-08-17 10:05:00 No 12.5 mg, Route: IVPB, ONCE, Dosing Weight 68.182, kg, Priority: STAT, Start date: 08/17/17 5:05:00 CDT, Stop date: 08/17/17 5:05:00 CDT [facility] Rocephin 2017-08-17 09:47:00 No 1 gm, Route: IVPB, Drug form: PDR/INJ, ONCE, Dosing Weight 68.182, kg, Priority: STAT, Start date: 08/17/17 4:47:00 CDT, Stop date: 08/17/17 4:47:00 CDT, ABX Indication: Urinary Tract Infection [facility] Ondansetron 2017-08-17 08:36:00 No 4 mg, Route: IVP, ONCE, Dosing Weight 68.182, kg, Priority: STAT, Start date: 08/17/17 3:36:00 CDT, Stop date: 08/17/17 3:36:00 CDT [facility] Saline Flush 0.9% 2017-08-17 08:36:00 No Notes: (Same as: BD Posiflush) [facility] Sodium Chloride 0.9% (Bolus) IV 2017-08-17 08:36:00 No 1,000 mL, Infuse Over: 1 hr, Route: IV, ONCE, Priority: STAT, Dosing Weight 68.182 kg, Start date: 08/17/17 3:36:00 CDT, Stop date: 08/17/17 3:36:00 CDT [facility] ibuprofen 800 mg oral tablet 2015-07-03 12:03:00 Yes 800 mg = 1 tab, PO, Q8H, PRN Fever or Pain, Take with food, # 30 tab, 0 Refill(s) Allegra Camarena Ondansetron 4 MG Disintegrating Tablet [Zofran] 2015-07-03 12:03 :00 Yes 4 mg = 1 tab, PO, Q8H, PRN a s needed for nausea/vomiting, X 4 day, # 12 tab, 0 Refill(s) Allegra Camarena acetaminophen-codeine #3 2015-07-03 10:12:00 No 1 tab, Route: PO, Dosing Weight 59.091, kg, ONCE, STAT, Start date: 07/03/15 4:12:00, Stop date: 07/03/15 4:12:00 Allegra Camarena Dicyclomine Hydrochloride 10 MG Oral Capsule [Bentyl] 2015-06-30 10:57:00 Yes 10 mg = 1 cap, PO, QID-Before Meals, # 2 8 cap, 0 Refill(s) Allegra Camarena Ondansetron 4 MG Disintegrating Tablet [Zofran] 2015-06-30 10:53 :00 Yes 4 mg = 1 tab, PO, Q8H, PRN N ausea and Vomiting, Dissolve tab under tongue, X 5 day, # 15 tab, 0 Refill(s) Allegra rao Levsin 2015-06-30 09:03:00 No Notes: (Same as: Minnie) MEDICATION WASTE Product Size: 0.5 mg Product Wasted: ___ mg Allegra aCmarena Zofran 2015-06-30 09:03:00 No Notes: (Same as: Nigel) MEDICATION WASTE Product Size: 4 mg Product Wasted: ___ mg Allegra Camarena Sodium Chloride 0.154 MEQ/ML Injectable Solution 2015-06-30 09:0 2:00 No 1,000 mL, 1000 ml/hr, Infuse Over: 1 hr, Route: IV, 1,000, Drug form: INJ, ONCE, Priority: STAT, Dosing Weight 68.182 kg, Start date: 06/30/15 3:02:00, Duration: 1 doses or times, Stop date: 06/30/15 3:02:00 Allegra Camarena acetaminophen 2013-03-11 02:44:00 No John Alexis YingUlrich 500 mg, 1 tab, Route: PO, Drug form: TAB, ONCE, Dosing Weight 52.727, kg, Pediatric Dosing, Priority: STAT, Start date: 03/10/13 21:44:00, Stop date: 03/10/13 21:44:00Max acetaminophen 4000 mg/day (4 gm/day). (Same as: Tylenol Extra Strength) Allegra Camarena Ventolin HFA 90 mcg/inh inhalation aerosol with adapter 2013-01-20 07:05:00 Yes Rafa Fritz Dav 2 puff , INHALATION, QID, PRN, 17 gm, as needed for cough or wheezing, Substitution Allowed, Maintenance, AERO Allegra Camarena Zithromax Z-Ishmael 250 mg oral tablet 2013-01-20 07:04:54 Yes Rafa Fritz Dav 1, PO, Daily, Ta ke as directed, 1 pkt, Substitution AllowedTake as directed Allegra Camarena Vital Signs Vital Name Observation Time Observation Value Comments Source Temperature Oral (F) 2019-11-18 09:14:00 98.3 F [facility] Heart Rate 2019-11-18 09:14:00 [facility] Respitory Rate 2019-11-18 09:14:00 [facility] Systolic (mm Hg) 2019-11-18 09:14:00 [facility] [place] Diastolic (mm Hg) 2019-11-18 09:14:00 [facility] [place] Height 2019-11-18 04:54:00 154.94 cm [facility] BMI Calculated 2019-11-18 04:54:00 [facility] Weight 2019-11-18 04:54:00 [facility] Systolic (mm Hg) 2019-11-18 04:54:00 [facility] [place] Diastolic (mm Hg) 2019-11-18 04:54:00 [facility] [place] Heart Rate 2019-11-18 04:54:00 [facility] Respitory Rate 2019-11-18 04:54:00 [facility] Temperature Oral (F) 2019-11-18 04:54:00 99.0 F [facility] Heart Rate 2018-10-29 09:55:00 [facility] Temperature Oral (F) 2018-10-29 09:55:00 98.3 F [facility] Respitory Rate 2018-10-29 09:55:00 [facility] Systolic (mm Hg) 2018-10-29 09:55:00 [facility] [place] Diastolic (mm Hg) 2018-10-29 09:55:00 [facility] Weight 2018-10-29 08:44:00 [facility] Height 2018-10-29 08:44:00 154.94 cm [facility] Respitory Rate 2018-10-29 08:44:00 [facility] Heart Rate 2018-10-29 08:44:00 [facility] BMI Calculated 2018-10-29 08:44:00 [facility] Temperature Oral (F) 2018-10-29 08:44:00 98 F [facility] Systolic (mm Hg) 2018-10-29 08:44:00 [facility] [place] Diastolic (mm Hg) 2018-10-29 08:44:00 [facility] [place] Systolic (mm Hg) 2017-08-17 10:13:00 [facility] [place] Diastolic (mm Hg) 2017-08-17 10:13:00 [facility] Respitory Rate 2017-08-17 10:13:00 [facility] Heart Rate 2017-08-17 10:13:00 [facility] Temperature Oral (F) 2017-08-17 08:00:00 98.8 F [facility] Respitory Rate 2017-08-17 08:00:00 [facility] Heart Rate 2017-08-17 08:00:00 [facility] Weight 2017-08-17 08:00:00 [facility] BMI Calculated 2017-08-17 08:00:00 [facility] Height 2017-08-17 08:00:00 154.94 cm [facility] Systolic (mm Hg) 2017-08-17 08:00:00 [facility] [place] Diastolic (mm Hg) 2017-08-17 08:00:00 [facility] Systolic (mm Hg) 2015-07-03 12:20:00 [facility] Diastolic (mm Hg) 2015-07-03 12:20:00 [facility] Respitory Rate 2015-07-03 12:20:00 [facility] Temperature Oral (F) 2015-07-03 12:20:00 98.3 F [facility] Heart Rate 2015-07-03 12:20:00 [facility] Systolic (mm Hg) 2015-07-03 09:50:00 [facility] [place] Diastolic (mm Hg) 2015-07-03 09:50:00 [facility] Heart Rate 2015-07-03 09:50:00 [facility] Respitory Rate 2015-07-03 09:50:00 [facility] Temperature Oral (F) 2015-07-03 09:50:00 98.5 F [facility] Height 2015-07-03 08:40:00 157.48 cm [facility] BMI Calculated 2015-07-03 08:40:00 [facility] Weight 2015-07-03 08:40:00 [facility] Systolic (mm Hg) 2015-07-03 08:40:00 [facility] [place] Diastolic (mm Hg) 2015-07-03 08:40:00 [facility] Temperature Oral (F) 2015-07-03 08:40:00 99.2 F [facility] Heart Rate 2015-07-03 08:40:00 [facility] Respitory Rate 2015-07-03 08:40:00 [facility] Temperature Oral (F) 2015-06-30 10:00:00 98.0 F [facility] Systolic (mm Hg) 2015-06-30 10:00:00 [facility] Diastolic (mm Hg) 2015-06-30 10:00:00 [facility] Respitory Rate 2015-06-30 10:00:00 [facility] Heart Rate 2015-06-30 10:00:00 [facility] Temperature Oral (F) 2015-06-30 08:12:00 98 F [facility] Systolic (mm Hg) 2015-06-30 08:12:00 [facility] [place] Diastolic (mm Hg) 2015-06-30 08:12:00 [facility] Respitory Rate 2015-06-30 08:12:00 [facility] Heart Rate 2015-06-30 08:12:00 [facility] Height 2015-06-30 06:59:00 157.48 cm [facility] Weight 2015-06-30 06:59:00 [facility] BMI Calculated 2015-06-30 06:59:00 [facility] Systolic (mm Hg) 2015-06-30 06:59:00 [facility] Diastolic (mm Hg) 2015-06-30 06:59:00 [facility] Temperature Oral (F) 2015-06-30 06:59:00 98.1 F [facility] Respitory Rate 2015-06-30 06:59:00 [facility] Heart Rate 2015-06-30 06:59:00 [facility] Diastolic (mm Hg) 2013-03-11 04:48:00 [facility] Heart Rate 2013-03-11 04:48:00 [facility] Temperature Oral (F) 2013-03-11 04:48:00 98.4 F [facility] Respitory Rate 2013-03-11 04:48:00 [facility] Systolic (mm Hg) 2013-03-11 04:48:00 [facility] Weight 2013-03-11 02:06:00 [facility] Respitory Rate 2013-03-11 02:06:00 [facility] Temperature Oral (F) 2013-03-11 02:06:00 99.5 F [facility] Heart Rate 2013-03-11 02:06:00 [facility] Systolic (mm Hg) 2013-03-11 02:06:00 [facility] Diastolic (mm Hg) 2013-03-11 02:06:00 [facility] Heart Rate 2013-01-20 07:17:00 [facility] Temperature Oral (F) 2013-01-20 07:17:00 98.6 F [facility] Systolic (mm Hg) 2013-01-20 07:17:00 [facility] Respitory Rate 2013-01-20 07:17:00 [facility] Diastolic (mm Hg) 2013-01-20 07:17:00 [facility] Respitory Rate 2013-01-20 03:45:00 [facility] Temperature Oral (F) 2013-01-20 03:45:00 98.2 F [facility] Weight 2013-01-20 03:45:00 [facility] Heart Rate 2013-01-20 03:45:00 [facility] Diastolic (mm Hg) 2013-01-20 03:45:00 [facility] Systolic (mm Hg) 2013-01-20 03:45:00 [facility] Height 2013-01-20 03:45:00 154.94 cm [facility] Procedures Procedure Date / Time Performed Performing Clinician Sourc e Emergency department visit for the evalu ation and management of a patient, which requires these 3 tipton components: An expanded problem focused history; An expanded problem focused examination; and Medical decision making of moderate complexity. Counseling 2013-03-10 05:00:00 [facility] Encounters Start Date/Time End Date/Time En[facility] Source 2019-11-17 23:21:18 2019-11-18 05:03:00 Outpatient Marline Allen MHSE MH[facility] [id number] 2019-11-17 23:21:00 2019-11-17 23:21:00 Emergency E MHSE [facility]SE [id number] 2018-10-29 03:42:26 2018-10-29 04:59:00 Outpatient Marline Allen MHSE MHSE [id number] 2018-10-29 03:42:00 2018-10-29 03:42:00 Emergency E MHSE [facility]SE [id number] 2017-08-17 02:54:00 2017-08-17 05:36:00 Outpatient Alessandra Cardenas MHSE MHSE [id number] 2015-07-03 02:39:00 2015-07-03 07:23:00 Outpatient Marleni Barbosa MHSE MHSE [id number] 2015-06-30 00:57:00 2015-06-30 05:00:00 Outpatient Desmond Banegas MHSE MHSE [id number] 2013-03-10 20:52:00 2013-03-10 23:51:00 Outpatient MHIE MHIE [id number] [facility] 2013-03-10 20:52:00 2013-03-10 23:51:00 Outpatient MHIE MHIE [id number] [facility] 2013-03-10 20:52:00 2013-03-10 23:51:00 Outpatient MHIE MHIE [id number] [facility] 2013-03-10 20:52:00 2013-03-10 23:51:00 Outpatient MHIE MHIE [id number] [facility] 2013-03-10 20:52:00 2013-03-10 23:51:00 Outpatient MHIE MHIE [id number] [facility] Results Test Description Test Time Test Comments Results Result Comments Source CARDIAC ENZYMES 2019-11-18 05:38:00 554 [facility] CARDIAC ENZYMES 2019-11-18 05:38:00 <0.02 [facility] CHEM PANEL 2019-11-18 05:38:00 103 [facility] CHEM PANEL 2019-11-18 05:38:00 14 [facility] CHEM PANEL 2019-11-18 05:38:00 0.64 [facility] CHEM PANEL 2019-11-18 05:38:00 139 [facility] CHEM PANEL 2019-11-18 05:38:00 3.6 [facility] CHEM PANEL 2019-11-18 05:38:00 107 [facility] CHEM PANEL 2019-11-18 05:38:00 28 [facility] CHEM PANEL 2019-11-18 05:38:00 9.1 [facility] CHEM PANEL 2019-11-18 05:38:00 8.2 [facility] CHEM PANEL 2019-11-18 05:38:00 3.9 [facility] CHEM PANEL 2019-11-18 05:38:00 47 [facility] CHEM PANEL 2019-11-18 05:38:00 30 [facility] CHEM PANEL 2019-11-18 05:38:00 95 [facility] CHEM PANEL 2019-11-18 05:38:00 0.3 [facility] CHEM PANEL 2019-11-18 05:38:00 7.6 [facility] CHEM PANEL 2019-11-18 05:38:00 Test Item B/C Ratio (test code = B/C Ratio) 22 1 6-25 [facility] [id number] [facility] 2019-11-18 05:38:00* Test Item Value Reference Range Interpretation Comments A/G Ratio (test code = A/G Ratio) 0.9 1 0.7-1.6 [facility] [id number] 05:38:44843Bqifjjqs HermannENDOCRINOLOGY 2019-11-18 05:38:00Negative *NA*(11/18/19 12:38 AM)[facility] 2019-11-18 05:38:009.2[facility] RqbtiowRXUHSTGIIL8416-50-58 05:38:004.60[facility] ZydsissJUIFEFLPEJ4971-47-15 05:38:0013.2[facility] FrvxlqtWHIKBSLQWO6316-70-01 05:38:0038.3[facility] TrokcezTALXCKEGMN1837-50-18 05:38:0083.4[facility] [id number] 05:38:00* Test Item Value Reference Range Interpretation Comments MCH (test code = MCH) 28.7 pg 27.0-31.0 [facility] DzwsquuFXFYHQDEQZ0647-55-82 05:38:0034.3[facility]ann[facility]MATOLOGY 2019-11-18 05:38:0013.6[facility] EizafaiKJAYYXLMDH6432-02-48 05:38:43229Sjrzndvw AknafdlPTVYRZYBCA0600-91-49 05:38:009.0[facility] MojtnykBYITVVIIYF8882-15-55 05:38:0070.8[facility] AomemwaSGZUMYRTYF3897-60-81 05:38:0019.5[facility] FYZFKXNEHV0910-98-91 05:38:009.0[facility] FwqbynmRRADKEGJMC0541-46-95 05:38:000.4 [facility] KapaxnaFAXPKCZQAS8197-50-60 05:38:000.3[facility]ann[facility]OLOGY 2019-11-18 05:38:006.5[facility] CdmqqwaIAQNJZTHOH9633-89-42 05:38:001.8[facility] HqgdwhhZUYFADUYIA6910-70-08 05:38:000.8[facility]annBASIC METABOLIC PANEL 2019-07-03 03:39:00* Test Item Value Reference Range Interpretation Comments SODIUM (test code = NA) 138 mmol/L 136-145 N POTASSIUM (test code = K) 3.1 mmol/L 3.5-5.1 L CHLORIDE (test code = CL) 109.0 mmol/L 98-107 H CARBON DIOXIDE (test code = CO2) 19.0 mmol/L 21-32 L ANION GAP (test code = GAP) 13.1 10-20 N GLUCOSE (test code = GLU) 99 mg/dL 74-106 N BLOOD UREA NITROGEN (test code = BUN) 13 mg/dL 7-18 N GLOMERULAR FILTRATION RATE (test code = GFR) > 60 mL/min >=60 Estimated GFR by using Modified MDRD formula.Chronic kidney disease is defined as either kidney damageor GFR <60 mL/min/1.73 m2 for >3 months. CREATININE (test code = CREAT) 0.60 mg/dL 0.55-1.02 N Note change in reference range due to change in reagent. BUN/CREATININE RATIO (test code = BUN/CREA) 21.7 10-20 H CALCIUM (test code = CA) 9.3 mg/dL 8.5-10.1 N CREATINE KINASE (CK)2019-07-03 03:39:00* Test Item Value Reference Range Interpretation Comments CREATINE KINASE (CK) (test code = CK) 102 IUnit/L 26-208 N HCG SERUM [id number] 03:39:00* Test Item Value Reference Range Interpretation Comments HCG SERUM QUAL (test code = HCGQL) NEGATIVE NEGATIVE This HCGQL test is NOT applicable for MALE patients.Check with nurse about probable order error.If Tumor Marker Test needed, nurse should order test "HCGTU"(Test #550.20447) [id number] 03:39:00* Test Item Value Reference Range Interpretation Comments TROPONIN-I (test code = TROPI) <0.015 ng/mL 0-0.045 N BASIC METABOLIC [id number] 02:59:00* Test Item Value Reference Range Interpretation Comments SODIUM (test code = NA) mmol/L 136-145 POTASSIUM (test code = K) mmol/L 3.5-5.1 CHLORIDE (test code = CL) mmol/L 98-107 CARBON DIOXIDE (test code = CO2) mmol/L 21-32 ANION GAP (test code = GAP) 10-20 GLUCOSE (test code = GLU) mg/dL 74-106 BLOOD UREA NITROGEN (test code = BUN) mg/dL 7-18 GLOMERULAR FILTRATION RATE (test code = GFR) mL/min >=60 CREATININE (test code = CREAT) mg/dL 0.55-1.02 BUN/CREATININE RATIO (test code = BUN/CREA) 10-20 CALCIUM (test code = CA) 9.3 mg/dL 8.5-10.1 N CREATINE KINASE (CK)2019-07-03 02:59:00* Test Item Value Reference Range Interpretation Comments CREATINE KINASE (CK) (test code = CK) IUnit/L 26-208 HCG SERUM [id number] 02:59:00* Test Item Value Reference Range Interpretation Comments HCG SERUM QUAL (test code = HCGQL) NEGATIVE NEGATIVE This HCGQL test is NOT applicable for MALE patients.Check with nurse about probable order error.If Tumor Marker Test needed, nurse should order test "HCGTU"(Test #550.80827) [id number] 02:59:00* Test Item Value Reference Range Interpretation Comments TROPONIN-I (test code = TROPI) ng/mL 0-0.045 BASIC METABOLIC [id number] 02:57:00* Test Item Value Reference Range Interpretation Comments SODIUM (test code = NA) mmol/L 136-145 POTASSIUM (test code = K) mmol/L 3.5-5.1 CHLORIDE (test code = CL) mmol/L 98-107 CARBON DIOXIDE (test code = CO2) mmol/L 21-32 ANION GAP (test code = GAP) 10-20 GLUCOSE (test code = GLU) mg/dL 74-106 BLOOD UREA NITROGEN (test code = BUN) mg/dL 7-18 GLOMERULAR FILTRATION RATE (test code = GFR) mL/min >=60 CREATININE (test code = CREAT) mg/dL 0.55-1.02 BUN/CREATININE RATIO (test code = BUN/CREA) 10-20 CALCIUM (test code = CA) 9.3 mg/dL 8.5-10.1 N CREATINE KINASE (CK)2019-07-03 02:57:00* Test Item Value Reference Range Interpretation Comments CREATINE KINASE (CK) (test code = CK) IUnit/L 26-208 HCG SERUM [id number] 02:57:00* Test Item Value Reference Range Interpretation Comments HCG SERUM QUAL (test code = HCGQL) NEGATIVE [id number] 02:57:00* Test Item Value Reference Range Interpretation Comments TROPONIN-I (test code = TROPI) ng/mL 0-0.045 - XR CHEST 1 [id number] 02:46:00 FAX: Julius Atwood MD [phone] [place]: [facility]: [facility] FAX: James Young DO Name: JAMESMILTON [facility] : 2000 Age/S: 18/F [address] [facility] Unit #: [id number] Loc: [place] [address] Phys: James Young DO Acct: [id number] Dis Date: Status: REG ER PHONE #: [phone] Exam Date: 07/03/2019 0205 FAX #: [phone] Reason: CHEST PAIN EXAMS: CPT CODE: [id number] XR CHEST 1 V [id number] EXAM: - XR CHEST 1 V HISTORY: Chest pain. COMPARISON: June 27, 2017. FINDINGS: Single AP view of the chest is provided. Heart size and vascularity are within normal limits. The lungs are clear of focal consolidation. No effusion, pneumothorax, or acute osseous abnormality. IMPRE SSION: No radiographic evidence of acute cardiopulmonary process. at 0246 Reported and signed by: Hudson Nicholson MD C: Julius Rand MD; James Young DO Technologist: Sarah Felix Trnscrd Date/Time/By: 07/03/2019 (0246) : By: [email or web address] Orig Print D/T: S: 07/03/2019 (0243) PAGE 1 Signed Report CBC W/O [id number] 02:43:00* Test Item Value Reference Range Interpretation Comments WHITE BLOOD CELL (test code = WBC) 10.1 K/mm3 4.5-12.5 N RED BLOOD CELL (test code = RBC) 4.76 mill/mm3 3.7-5.2 N HEMOGLOBIN (test code = HGB) 13.4 gram/dL 11.5-15.5 N HEMATOCRIT (test code = HCT) 40.2 % 36.0-46.0 N MEAN CELL VOLUME (test code = MCV) 84.5 fL 80-98 N MEAN CELL HGB (test code = MCH) 28.2 picogram 27.0-33.0 N MEAN CELL HGB CONCETRATION (test code = MCHC) 33.3 gram/dL 33.0-36. 0 N RED CELL DISTRIBUTION WIDTH (test code = RDW) 13.1 % 11.6-16. 2 N PLATELET COUNT (test code = PLT) 362 K/mm3 150-450 N MEAN PLATELET VOLUME (test code = MPV) 10.5 fL 6.7-11.0 N CBC W/O [id number] 02:40:00* Test Item Value Reference Range Interpretation Comments WHITE BLOOD CELL (test code = WBC) K/mm3 4.5-12.5 RED BLOOD CELL (test code = RBC) mill/mm3 3.7-5.2 HEMOGLOBIN (test code = HGB) 13.4 gram/dL 11.5-15.5 N HEMATOCRIT (test code = HCT) 40.2 % 36.0-46.0 N MEAN CELL VOLUME (test code = MCV) fL 80-98 MEAN CELL HGB (test code = MCH) picogram 27.0-33.0 MEAN CELL HGB CONCETRATION (test code = MCHC) gram/dL 33.0-36. 0 RED CELL DISTRIBUTION WIDTH (test code = RDW) % 11.6-16. 2 PLATELET COUNT (test code = PLT) K/mm3 150-450 MEAN PLATELET VOLUME (test code = MPV) fL 6.7-11.0 - DUP AB/PEL/SC/FHB1506-93-67 15:30:00 Name: MILTON DURAN [facility] : 2000 Age/S: 18 / F [address] Unit #: [id number] Loc: [place] [address] Phys: Nam Cutler MD Acct: [id number] Dis Date: Status: REG CLI PHONE #: [phone] Exam Date: 05/24/2019 1526 FAX #: [phone] Reason: AMENORRHEA EXAMS: CPT CODE: [id number] DUP AB/PEL/SC/LTD 93957 ADDENDUM: Arterial flow to both ovaries demonstrates no evidence for torsion. SL: 01 Addended on 05/24/2019 3:29:48 PM by Zhang Mosqueda. PROCEDURE: PELVIC ULTRASOUND INDICATION: Amenorrhea COMPARISON: CT 03/30/2017 TRANSABDOMINAL SCAN: The uterus measures 6.6 x 3.0 x 4.6 cm. No adnexal mass is present. Neither ovary is well visualized. For better visualization of the endometrial canal and adnexa, endovaginal imaging was performed. TRANSVAGINAL SCAN: The right ovary measures 3.5 x 3.5 x 3.3 cm and contains a 2.4 cm cyst. There is normal flow to the right ovary. The left ovary measures 2.4 x 2.6 x 2.0 cm and contains normal flow. Endometrial stripe measures 6 mm. No significant free fluid is present. No myometrial or adnexal mass is present. IMPRESSION: 1. No myometrial or adnexal mass. 2. Normal endometrial thickening. 3. Normal ovaries with dominant right ovarian cyst measuring 2.4 cm. SL: [id number] at 1530 Reported and signed by: Zhang Mosqueda M.D. CC: Julius Rand MD; Nam Cutler MD Technologist: Major Arzola Trnwvb Date/Time: 05/24/2019 (153) [email or web address] Orig Print D/T: S: 05/24/2019 (1533) Probe: PAGE 1 Signed Report - US TRANSVAGINAL NON OB 2019-05-24 15:29:00 [facility] [place] : 2000 Age/S: 18 / F [address] [place] [address] Unit #: [id number] Loc: [place] [address] Phys: Nam Cutler MD Acct: [id number] Dis Date: Status: REG CLI PHONE #: [phone] Exam Date: 05/24/20191512 FAX #: [phone] Reason: N92.1 AMENORRHEA Report Has Been Amended EXAMS: CPT CODE: [id number] [place] [address] Addendum - 05/24/2019 SIGNED 05/24/2019 ADDENDUM: [id number] US/USTRANSV ADDENDUM: Arterial flow to both ovaries demonstrates no evidence for torsion. SL: 01 at 1529 Reported and signed by: Zhang Mosqueda M.D. Report PROCEDURE: PELVIC ULTRASOUND INDICATION: Amenorrhea COMPARISON: CT 03/30/2017 TRANSABDOMINAL SCAN: The uterus measures 6.6 x 3.0 x 4.6 cm. No adnexal mass is present. Neither ovary is well visualized. For better visualization of the endometrial canal and adnexa, endovaginal imaging was performed. TRANSVAGINAL SCAN: The right ovary measures 3.5 x 3.5 x 3.3 cm and contains a 2.4 cm cyst. There is normal flow to the right ovary. The left ovary measures 2.4 x 2.6 x 2.0 cm and contains normal flow. Endometrial stripe measures 6 mm. No significant free fluid is present. No myometrial or adnexal mass is present. IMPRESSION: 1. No myometrial or adnexal mass. 2. Normal endometrial thickening. 3. Normal ovaries with dominant right ovarian cyst measuring 2.4 cm. SL: [id number] PAGE 1 Signed Report (CONTINUED) Name: MILTON DURAN : 2000 Age/S: 18 / F [address] [place] [address] Unit #: [id number] Loc: [place] [address] Phys: Nam Cutler MD Acct: [id number] Dis Date: Status: REG CLI PHONE #: Exam Date: 05/24/20191512 FAX #: Reason: N92.1 AMENORRHEA Report Has Been Amended EXAMS: CPT CODE: [id number] [place] [address] <Continued> at 1526 Reported and signed by: Zhang Mosqueda M.D. CC: Julius Rand MD; Nam Cutler MD Technologist: Major Arzola Trnwvb Date/Time: 05/24/2019 (1526) [email or web address] Orig Print D/T: S: 05/24/2019 (1529) Probe: [id number] PAGE 2 Signed Report - US PELVIS COMPLETE 2019-05-24 15:29:00 [facility] 2000 Age/S: 18 / F [address] [place] [address] Bl Unit #: [id number] Loc: [place] [address] Phys: Nam Cutler MD Acct: [id number] Dis Date: Status: REG CLI PHONE #: [phone] Exam Date: 05/24/20191512 FAX #: [phone] Reason: N91.2 AMENORRHEA Report Has Been Amended EXAMS: CPT CODE: [id number] US PELVIS COMPLETE 91085 Addendum - 05/24/2019 SIGNED 05/24/2019 ADDENDUM: [id number] US/USPELNOBC ADDENDUM: Arterial flow to both ovaries demonstrates no evidence for torsion. SL: 01 at 1529 Reported and signed by: Zhang Mosqueda M.D. Report PROCEDURE: PELVIC ULTRASOUND INDICATION: Amenorrhea COMPARISON: CT 03/30/2017 TRANSABDOMINAL SCAN: The uterus measures 6.6 x 3.0 x 4.6 cm. No adnexal mass is present. Neither ovary is well visualized. For better visualization of the endometrial canal and adnexa, endovaginal imaging was performed. TRANSVAGINAL SCAN: The right ovary measures 3.5 x 3.5 x 3.3 cm and contains a 2.4 cm cyst. There is normal flow to the right ovary. The left ovary measures 2.4 x 2.6 x 2.0 cm and contains normal flow. Endometrial stripe measures 6 mm. No significant free fluid is present. No myometrial or adnexal mass is present. IMPRESSION: 1. No myometrial or adnexal mass. 2. Normal endometrial thickening. 3. Normal ovaries with dominant right ovarian cyst measuring 2.4 cm. SL: [id number] PAGE 1 Signed Report (CONTINUED) Name[facility] : 2000 Age/S: 18 / F [address] [place] [address] Unit #: [id number] Loc: [place] [address] Phys: Nam Cutler MD Acct: [id number] Dis Date: Status: REG CLI PHONE #: Exam Date: 05/24/20191512 FAX #: Reason: N91.2 AMENORRHEA Report Has Been Amended EXAMS: CPT CODE: [id number] US PELVIS COMPLETE 48702 <Continued> at 1526 Reported and signed by: Zhang Mosqueda M.D. CC: Julius Rand MD; Nam Cutler MD Technologist: Major Arzola Trnscb Date/Time: 05/24/2019 (1526) [email or web address] Orig Print D/T: S: 05/24/2019 (1529) Probe: PAGE 2 Signed Report - US TRANSVAGINAL NON [id number] 15:26:00 Name: MILTON DURAN [place] : 2000 Age/S: 18 / F [address] [place] [address] Unit #: [id number] Loc: [place] [address] Phys: Nam Cutler MD Acct: [id number] Dis Date: Status: REG CLI PHONE #: [phone] Exam Date: 05/24/20191512 FAX #: [phone] Reason: N92.1 AMENORRHEA EXAMS: CPT CODE: [id number] [place] [address] PROCEDURE: PELVIC ULTRASOUND INDICATION: Amenorrhea COMPARISON: CT 03/30/2017 TRANSABDOMINAL SCAN: The uterus measures 6.6 x 3.0 x 4.6 cm. No adnexal mass is present. Neither ovary is well visualized. For better visualization of the endometrial canal and adnexa, endovaginal imaging was performed. TRANSVAGINAL SCAN: The right ovary measures 3.5 x 3.5 x 3.3 cm and contains a 2.4 cm cyst. There is normal flow to the right ovary. The left ovary measures 2.4 x 2.6 x 2.0 cm and contains normal flow. Endometrial stripe measures 6 mm. No significant free fluid is present. No myometrial or adnexal mass is present. IMPRESSION: 1. No myometrial or adnexal mass. 2. Normal endometrial thickening. 3. Normal ovaries with dominant right ovarian cyst measuring 2.4 cm. SL: [id number] at 1526 Reported and signed by: Zhang Mosqueda M.D. CC: Julius Rand MD; Nam Cutler MD Technologist: Major Arzola Trnwvb Date/Time: 05/24/2019 (1526) [email or web address] Orig Print D/T: S: 05/24/2019 (1529) Probe: [id number] PAGE 1 Signed Report - US PELVIS [id number] 15:26:00 Name: MILTON DURAN [facility] : 2000 Age/S: 18 / F [address] [place] [address] Unit #: [id number] Loc: [place] [address] Phys: Nam Cutler MD Acct: [id number] Di s Date: Status: REG CLI PHONE #: Exam Date: 05/24/2019 1513 FAX #: [phone] Reason: N91.2 AMENORRHEA EXAMS: CPT CODE: [id number] US PELVIS COM PLETE 54025 PROCEDURE: PELVIC ULTRASO UND INDICATION: Amenorrhea COMPARISON: CT 03/30/2017 TRANSABDOMINAL SCAN: The uterus measures 6.6 x 3.0 x 4.6 cm. No adnexal mass is present. Neither ovary is well visualized. For better visualization of the endometrial canal and adnexa, endovaginal imaging was performed. TRANSVAGINAL SCAN: The right ovary measures 3.5 x 3.5 x 3.3 cm and contains a 2.4 cm cyst. There is normal flow to t he right ovary. The left ovary measures 2.4 x 2.6 x 2.0 cm and contains n ormal flow. Endometrial stripe measures 6 mm. No significant free fluid is present. No myometrial or adnexal mass is present. IMP RESSION: 1. No myometrial or adnexal mass. 2. Normal endometri al thickening. 3. Normal ovaries with dominant right ovarian cyst measu ring 2.4 cm. SL: [id number] Electronica lly Signed by Chayito Mosqueda on 05/24/2019 a t 1526 Reported and signed by: Zhang Mosqueda M.D. CC: Julius Rand MD; Nam Cutler MD Technologist: Major Arzola [facility] b Date/Time: 05/24/2019 (152) [email or web address] Orig Print D/T: S: 05/24/2019 (1529) Probe: PAGE 1 Signed Report URINE AND FYPNK7219-70-90 08:55:00Small *ABN*(08/17/17 3:55 AM)[facility] ECLGV9578-42-27 08:55:00Negative (08/17/17 3:55 AM)[facility] IJNSK3317-76-17 08:55:003[facility] WUPAR0950-63-52 08:55:0026[facility]INE AND SQAPK3212-59-25 08:55:00* Test Item Value Reference Range Interpretation Comments UA pH (test code = UA pH) 7.0 1 5.0-8.0 [facility] DDUNE4816-56-11 08:55:00Slight *ABN*(08/17/17 3:55 AM) [facility] TYJSQ5737-38-57 08:55:00Yellow *NA*(08/17/17 3:55 AM) [facility] QDSFK7698-98-48 08:55:00* Test Item Value Reference Range Interpretation Comments UA Spec Grav (test code = UA Spec Grav) 1.032 1 [facility] PNKAL6271-32-26 08:55:00Negative (08/17/17 3:55 AM) [facility] AUFTT1812-98-51 08:55:00Negative *NA*(08/17/17 3:55 AM) [facility] IJCE3527-33-35 08:55:00Negative (08/17/17 3:55 AM)[facility]ann[facility] OPHFL2811-64-56 08:46:0071[facility] EyjkxvzURUCIMVPMFQE2732-31-41 08:46:0011.9[facility] TklgashWRNWYBBQKISI5980-08-50 08:46:00* Test Item Value Reference Range Interpretation Comments A/G Ratio (test code = A/G Ratio) 0.9 1 0.7-1.6 [facility] LkyjrbmTOUDJTAFZCTL6818-81-65 08:46:00* Test Item Value Reference Range Interpretation Comments B/C Ratio (test code = B/C Ratio) 31 1 6-25 [facility] JioyvqqXWHZIYPOEOWK1595-44-30 08:46:004.1[facility]annELECTROLYTES 2017-08-17 08:46:46136[facility] BvqsjypSZXTHHYWYDGO3106-85-33 08:46:0018[facility] KrqdsaeJJAWQBZBLLXK5584-81-82 08:46:0072[facility] SfzqjovUXJVZZFXCJPW6610-95-01 08:46:0022[facility] XlkgghsOXLGUZQOXLMH9697-89-11 08:46:000.4[facility] SUCCYBFUYYFF5148-30-33 08:46:003.8[facility] AmlneraXKQFXEUONPSC2170-89-07 08:46:0024[facility] KxtkqruHZHJQUFUAMHV7034-52-12 08:46:008.7[facility] IXYUIQZUNZPZ0241-81-53 08:46:83262Bktxbuwh PgercfvUNHEGRFWNWUQ9576-92-37 08:46:007.9[facility] BhrrmtjSCCMFUZRPZAK7915-95-68 08:46:003.9[facility] CMHQIHAPGRFU3039-47-32 08:46:0016[facility] NaqcbzvQPVZWGDTBBYP0713-08-90 08:46:00 0.52[facility] IoshzmsGBHUYGZKTWSO7651-35-54 08:46:0092[facility] UQZVUZEYWPDD1035-49-07 08:46:65493Nfscqlrt QkalvhlBBCSOUYNKQ1661-68-47 08:46:00 Normal (08/17/17 3:46 AM)[facility] PrahbnsKMJGNWLLUX8724-39-89 08:46:00Normal (08/17/17 3:46 AM)[facility] PdwelfwQKURITLITC7750-59-01 08:46:0091.4[facility] YptvuonXCOOVCEMWF9985-43-34 08:46:000.4[facility] BswneolDVVHBWCKEZ9873-01-30 08:46:000.5[facility] OlilbizRFDDKYDBZC9726-65-00 08:46:0010.4[facility] AAXUHDSUCD9158-84-00 08:46:003.8[facility] OvwymmfJOFEEBPNEC4131-87-25 08:46:000.2 [facility] PkyorbsZVDMGCODFF8750-65-45 08:46:000.2[facility]annHEMATOLOGY 2017-08-17 08:46:004.4[facility] KnjdvreAFZXNSREWE3696-63-56 08:46:80937Hatfrgpi QgpztvoZBUOAGGLRC1863-93-77 08:46:0032.8[facility] DihlcxuYWLBBYLZNU7262-60-15 08:46:00* Test Item Value Reference Range Interpretation Comments MCH (test code = MCH) 26.2 pg 27.0-31.0 [facility] MeggrcrAWLTMJGZXR9330-16-32 08:46:009.0[facility]annHEMATOLOGY 2017-08-17 08:46:0014.1[facility] IanciapDQWSRNWBMP7284-91-07 08:46:0011.9[facility] SyggygfLUYAAYATRR4022-74-38 08:46:0079.8[facility] WghfgtnTYBMZZLPNO3227-79-78 08:46:0036.2[facility] NodlmafBMXCQSVDWS9828-69-88 08:46:0011.3[facility] JZWUSJHTOY6410-17-80 08:46:004.53[facility] VHGP4860-52-43 11:19:00 Negative (07/03/15 5:19 AM)[facility] ROJLR1926-72-00 07:29:44 Clear (06/30/15 1:29 AM)[facility] TELBM6842-83-67 07:29:441.031 [facility] YEZIG7619-74-21 07:29:442[facility] CZBMK9885-20-56 07:29:44Trace *ABN*(06/30/15 1:29 AM)[facility] QQNJD1431-64-36 07:29:44Negative (06/30/15 1:29 AM)[facility] XDRQY9781-45-05 07:29:44Negative (06/30/15 1:29 AM)[facility] QWDDT4209-06-62 07:29:444[facility] DOHRP3307-95-04 07:29:44 Negative *NA*(06/30/15 1:29 AM)[facility] CYPIR3696-50-85 07:29:44 5.0[facility] IYVU4724-10-54 07:29:44Negative (06/30/15 1:29 AM) [facility]annCHEM QWYPZ9951-89-43 07:13:89618Myoqbask HermannCHEM PANEL 2015-06-30 07:13:0089[facility]annCHEM MMIJF6798-88-97 07:13:0092[facility]annCHEM RGGXN1577-07-33 07:13:0033[facility]annCHEM AWBXY6685-73-39 07:13:007.9[facility]annCHEM JNPZV5562-25-23 07:13:0022[facility]annCHEM WHEZS3838-14-89 07:13:004.0[facility]annCHEM DTHSF2315-98-17 07:13:008.8 [facility]annCHE[facility] GTWHA8115-67-51 07:13:003.8[facility]annCHEM PANEL 2015-06-30 07:13:000.48[facility] HermannCHEM VENOB4305-29-29 07:13:50982Xmthshil HermannCHEM UOXRE4922-96-41 07:13:74018Yztdkpnd HermannCHEM CXQPY7509-83-93 07:13:0015[facility]annCHEM GSBRD3855-93-01 07:13:61419Bsharpnu HermannCHEM GZXCW0877-85-52 07:13:85591Tbtgmfsi HermannCHEM XYJIH4330-63-46 07:13:000.3 [facility]annCHEM FWNMV5168-13-39 07:13:0014[facility] HermannCHEM PANEL 2015-06-30 07:13:003.9[facility] HermannCHEM WUYEU8405-85-45 07:13:001.0[facility] HermannCHEM BKXPI6570-91-82 07:13:0031[facility] HermannCHEM HGVEO1186-48-37 07:13:0013.8[facility] YwvxpyhGCEGOHSJDT5119-72-26 07:13:000.2[facility] QFGYZRKRVZ7278-41-09 07:13:000.8[facility] WrbosqnHCMZCPOBTS5991-11-30 07:13:001.4 [facility] YcediweJHCTZZCWYE2369-83-49 07:13:007.5[facility]annHEMATOLOGY 2015-06-30 07:13:001.9[facility] QudrlpwWALWEIIRVF3573-50-74 07:13:0075.4[facility] ZzpvumuNIGHXDOESG9349-60-77 07:13:0013.9[facility] EhwmasfYFBAKUCMEJ9124-46-15 07:13:000.3[facility] MkgvisiBBCMKGWYUC5109-46-78 07:13:008.5[facility] DTYNCXFOHQ8053-82-96 07:13:009.0[facility] BwomlngOHCJACETYN9248-77-85 07:13:63938 [facility] VmvpthvHFGGHIXWXR6988-44-37 07:13:0033.6[facility]annHEMATOLOGY 2015-06-30 07:13:0082.8[facility] IfolngvKIQXRMNBYN0864-90-76 07:13:0013.6[facility] TxikzneOMCOZAXZGN7675-54-19 07:13:00* Test Item Value Reference Range Interpretation Comments MCH (test code = MCH) 27.8 pg 27.0-31.0 [facility] NyyexdoXYPKGNFBDX4897-64-64 07:13:004.97[facility]annHEMATOLOGY 2015-06-30 07:13:009.9[facility] AcqqmmqTYXKHPTOJD3944-83-46 07:13:0041.1[facility] MhnalozDCRSHXXUHU8194-60-59 07:13:0013.8[facility]annVIRAL - SEROLOGY 2013-03-11 02:30:00Negative (03/10/2013 21:30:00) [facility] - ADJRURCN4969-78-19 02:30:00Negative 1(03/10/2013 21:30:00[facility] [place] [address] Patient Name: MILTON DURAN MR #: [id number] : 2000 Age/Sex: 16/F Req #: [id number] Adm Physician: Ordered by: TIAGO COSTELLO MD Report #: [id number] Location: ER Room/Bed: Procedure: [id number] US/US GALLBLADDER Exam Date: 02/17/17 Exam Time: [address] ATUS: Signed EXAM: US GALLBLADDER DATE: 02/17/2017 12:00 AM Time stamp on exam: 0113 hours INDICATION: Right upper quadrant pain COMPARISON: None T ECHNIQUE: Transverse and longitudinal sonographic images of the right upper ab domen were obtained. FINDINGS: LIVER: 13.1 cm in the right midcla vicular line. Normal echogenicity, normal contour, no masses. Main Portal Ve in: Normal size with hepatopetal flow. GALLBLADDER: The gallbladder is co ntracted. No gallstones visualized. Negative sonographic Boyle's sign. B ILE DUCTS: No intra nor extra-hepatic dilation. Common bile duct measures 0. 2 cm. PANCREAS: Not well visualized RIGHT KIDNEY: 11.1 cm in length Echogenicity: Normal Collecting System: No hydronephrosis Stones: None C yst/Mass: None FREE FLUID: None in the right upper quadrant of the abdomen IMPRESSION: Contracted gallbladder. No evidence of cholecystitis. Signed by: Dr. Gus Rios M.D. on 02/17/2017 1:32 AM Dictated B y: GUS RIOS MD 1 Transcribed By: VIN on 02/17/17131 COPY TO: TIAGO COSTELLO MD
[2020-04-01 18:16] VITALS: BP 121/78
--- NOTE | 2020-04-01 18:42 | Diagnostic Imaging Report ---
EXAMINATION: CHEST SINGLE (PORTABLE) INDICATION: ^CP ^[id number] ^1720 COMPARISON: None FINDINGS: TUBES and LINES: None. LUNGS: Normal lung volumes. Lungs are clear. No consolidations. Bibasilar atelectasis. PLEURA: No pleural effusion or pneumothorax. HEART AND MEDIASTINUM: The cardiomediastinal silhouette is unremarkable. BONES AND SOFT TISSUES: No acute osseous lesion. Soft tissues are unremarkable. UPPER ABDOMEN: No free air under the diaphragm. IMPRESSION: No acute thoracic radiographic abnormality. Signed by: Rafa Harper MD on 04/01/2020 6:38 PM
== END 2020-04-01 18:10 | disposition home or self-care (01) ==
LOC: ER 17:04
DX: R07.9 Chest pain, unspecified (principal); K21.9 Gastro-esophageal reflux disease without esophagitis; R94.31 Abnormal electrocardiogram [ECG] [EKG]
CPT/HCPCS: 71045; 81025; 93005; 99283

== ENCOUNTER 2022-08-15 07:28 | Emergency (ER) | payer MEDICARE, OTHER ==
[~2022-08-15] VITALS: Ht 157.5 cm; Wt 79.4 kg
[2022-08-15] MEDS ORDERED: AMOXICILLIN500 MG PO (07:45)
== END 2022-08-15 08:09 | disposition home or self-care (01) ==
LOC: ER 07:38
DX: R50.9 Fever, unspecified (principal); J02.0 Streptococcal pharyngitis
CPT/HCPCS: 99283

== ENCOUNTER 2024-02-23 19:13 | Emergency (ER) | payer OTHER ==
[~2024-02-23] VITALS: Ht 157.5 cm; Wt 79.4 kg
[~2024-02-23 19:13] MED LIST: AMOXICILLIN500 MG PO
[2024-02-23 20:00] VITALS: PULSE 99; RESP 20; TEMP 98.9
[2024-02-23 20:25] LABS: BASOPHILS % 0.1 % (0.0-1.0); EOSINOPHILS % 0.2 % (0.0-6.0); HEMATOCRIT 39.1 % (34.2-44.1); HEMOGLOBIN 12.9 g/dL (12.0-16.0); LYMPHOCYTES # (AUTO) 2.3 (1.0-3.2); MEAN CORPUSCULAR HEMOGLOBIN 28.1 pg (28-32); MEAN CORPUSCULAR VOLUME 85.2 fL (81-99); MONOCYTES # (AUTO) 0.8 (0.2-0.8); MONOCYTES % 8.5 % (4.4-11.3); NEUTROPHILS # (AUTO) 6.7 (2.1-6.9); PLATELET COUNT 330 x10e3/uL (140-360); RED BLOOD COUNT 4.59 x10e6/uL (3.6-5.1); RED CELL DISTRIBUTION WIDTH 13.7 % (11.7-14.4); WHITE BLOOD COUNT 9.78 x10e3/uL (4.8-10.8)
[2024-02-23 20:29] LABS: BILIRUBIN,URINE NEGATIVE (NEGATIVE); CLARITY,URINE SL CLOUDY (CLEAR); COLOR,URINE YELLOW (YELLOW); GLUCOSE, URINE NEGATIVE (NEGATIVE); KETONES,URINE 1+ (NEGATIVE); LEUKOCYTE ESTERASE ,URINE NEGATIVE (NEGATIVE); NITRITE,URINE NEGATIVE (NEGATIVE); PH,URINE 6 (5 - 7); PROTEIN,URINE DIPSTICK NEGATIVE (NEGATIVE); URINE UROBILINOGEN 0.2 mg/dL (0.2 - 1)
[2024-02-23 20:37] LABS: BACTERIA,URINE FEW /HPF; EPITHELIAL CELLS,URINE MODERATE /LPF
[2024-02-23] MEDS: SODIUM CHLORIDE 0.9% 1000ML 1,000 ML IV ONE (20:38)
[2024-02-23] MEDS: ONDANSETRON HCL INJ 2MG/ML 2ML 2 MG/ML VIAL IV STA (20:38)
[2024-02-23 20:42] LABS: ALBUMIN 4.4 g/dL (3.5-5.0); ALBUMIN/GLOBULIN RATIO 1.1 (0.8-2.0); ANION GAP 14.3 mmol/L (8-16); BILIRUBIN,TOTAL 0.4 mg/dL (0.2-1.2); CALCIUM 9.6 mg/dL (8.4-10.2); CREATININE, SERUM 0.71 mg/dL (0.57-1.11); TOTAL PROTEIN 8.5 g/dL (6.5-8.1)
[2024-02-23 20:44] LABS: POTASSIUM 3.3 mmol/L (3.5-5.1)
[2024-02-23 20:47] LABS: LIPASE 20 U/L (8-78)
[2024-02-23] MEDS ORDERED: ONDANSETRON ODT4 MG SL (23:33)
[2024-02-23 23:56] VITALS: BP 124/86; PULSE 81; RESP 16; O2SAT 100
== END 2024-02-23 23:49 | disposition home or self-care (01) ==
LOC: ER 19:23
DX: O21.0 Mild hyperemesis gravidarum (principal); R10.30 Lower abdominal pain, unspecified; R53.83 Other fatigue
CPT/HCPCS: 36415; 76801; 76817; 80053; 81001; 83690; 84702; 85025; 99284; J2405; J7030

== ENCOUNTER 2024-03-26 08:14 | Emergency (ER) | payer OTHER ==
[~2024-03-26] VITALS: Ht 157.5 cm; Wt 79.4 kg
[~2024-03-26 08:14] MED LIST changes: +ONDANSETRON ODT4 MG SL
[2024-03-26 08:27] VITALS: PULSE 88; RESP 18; TEMP 97.7; O2SAT 100
[2024-03-26] MEDS: ONDANSETRON HCL 4 MG ORAL DISINTEGRATING TAB PO ONE (08:41)
[2024-03-26] MEDS ORDERED: ONDANSETRON ODT4 MG PO (08:45)
[2024-03-26] MEDS ORDERED: DICLEGIS DR 101 EACH PO (08:45)
== END 2024-03-26 08:54 | disposition home or self-care (01) ==
LOC: ER 08:21
DX: O21.0 Mild hyperemesis gravidarum (principal)
CPT/HCPCS: 99283; Q0162